=== PATIENT | female | born 1965 | race Two or more races ===

== ENCOUNTER 2018-10-31 14:54 | Inpatient (IN) | payer BC ==
[~2018-10-31] VITALS: Ht 165.1 cm; Wt 105.8 kg
[2018-10-31] MEDS ORDERED: NITROGLYCERIN SUBLINGUAL 0.4 MG BOTTLE OF 25. SL PRN ×2 (15:15→16:45)
--- NOTE | 2018-10-31 15:23 | PHYS DOC ---
Past Medical History Past Medical History: No Pertinent History Past Surgical History: Hysterectomy, Tubal ligation Alcohol Use: None Drug Use: None Adult General Chief Complaint Chief Complaint: CHEST PAIN HPI HPI Patient is a 52 year old F who presents with chest pain that she states has been intermittent since early October. She denies known history of CAD but does have risk factors including diabetes, obesity, family history and while she denies hypertension she is found to be hypertensive on arrival to ER today. Pt is primarily Scottish speaking and her daughter in room is translating for her. Pt saw her PCP early this month and was sent over for a nuclear stress test which was performed here on 10/16/18. In review of the test results they read as: ECG non-diagnostic, clinical findings: neg for ischemia, nuclear findings: positive for ischemia, LVF: intermediate risk study based on presence of inducib le ischemia involving the inferolateral wall and a fixed defect of anteroapical region likely attenuation artifact, post stress LVEF 69%. Pt states the pain has become more persistent today and requested to come to ER. She did take a full strength, 325mg ASA prior to arrival and states pain is sub sternal as well as in her upper back and neck region and describes it as a dull ache. She was nauseated without vomiting earlier today. She denies SOB or diophoresis. Review of Systems Review of Systems Constitutional: Denies fever or chills Respiratory: Denies cough or shortness of breath Cardiovascular: Reports chest pain. GI: Denies abdominal pain, vomiting, bloody stools or diarrhea. Reports nausea. Musculoskeletal: Reports upper back and neck pain. Integument: Denies rash or skin lesions Neurologic: Denies headache, focal weakness or sensory changes All other systems were reviewed and found to be within normal limits, except as documented in this note. Current Medications Current Medications Current Medications Medications (Trade) Dose Ordered Sig/Celina Start Time Stop Time Status Last Admin Dose Admin Nitroglycerin (Nitrostat) 0.4 mg PRN Q5MIN PRN 10/31/18 15:15 Allergies Allergies Allergies Coded Allergies Type Severity Reaction Last Updated Verified No Known Drug Allergies 10/31/18 No Physical Exam Physical Exam Constitutional: Well developed, well nourished, no acute distress, non-toxic appearance. HENT: Normocephalic, atraumatic, bilateral external ears normal, oropharynx moist. Neck: Normal range of motion, supple, no stridor. Ache is upper back and neck but without pain on palpation. Cardiovascular:Heart rate regular rhythm, no murmur Lungs & Thorax: Bilateral breath sounds clear to auscultation Abdomen: Bowel sounds normal, soft, no tenderness, no masses, no pulsatile masses. Skin: Warm, dry, no erythema, no rash. Back: No CVA tenderness. Aching in upper back. Extremities: No tenderness, no cyanosis, no clubbing, ROM intact, no edema. Neurologic: Alert and oriented X 3, normal motor function, normal sensory function, no focal deficits noted. Psychologic: Affect normal, judgement normal, mood normal. Current Patient Data Vital Signs Vital Signs Date Time Temp Pulse Resp B/P (MAP) Pulse Ox O2 Delivery O2 Flow Rate FiO2 10/31/18 15:00 98.7 77 20 176/94 (121) 97 Room Air 98.7 Lab Values Laboratory Tests Test 10/31/18 15:10 White Blood Count 7.1 x10^3/uL (4.0-11.0) Red Blood Count 4.50 x10^6/uL (3.50-5.40) Hemoglobin 13.2 g/dL (12.0-15.5) Hematocrit 38.9 % (36.0-47.0) Mean Corpuscular Volume 87 fL (79-100) Mean Corpuscular Hemoglobin 29 pg (25-35) Mean Corpuscular Hemoglobin Concent 34 g/dL (31-37) Red Cell Distribution Width 14.1 % (11.5-14.5) Platelet Count 329 x10^3/uL (140-400) Neutrophils (%) (Auto) 66 % (31-73) Lymphocytes (%) (Auto) 26 % (24-48) Monocytes (%) (Auto) 6 % (0-9) Eosinophils (%) (Auto) 2 % (0-3) Basophils (%) (Auto) 1 % (0-3) Neutrophils # (Auto) 4.7 x10^3uL (1.8-7.7) Lymphocytes # (Auto) 1.8 x10^3/uL (1.0-4.8) Monocytes # (Auto) 0.4 x10^3/uL (0.0-1.1) Eosinophils # (Auto) 0.1 x10^3/uL (0.0-0.7) Basophils # (Auto) 0.0 x10^3/uL (0.0-0.2) Prothrombin Time 12.3 SEC (11.7-14.0) Prothrombin Time INR 0.9 (0.8-1.1) PTT 27 SEC (24-38) Sodium Level 140 mmol/L (136-145) Potassium Level 4.5 mmol/L (3.5-5.1) Chloride Level 103 mmol/L (98-107) Carbon Dioxide Level 25 mmol/L (21-32) Anion Gap 12 (6-14) Blood Urea Nitrogen 15 mg/dL (7-20) Creatinine 0.6 mg/dL (0.6-1.0) Estimated GFR (Cockcroft-Gault) 105.0 BUN/Creatinine Ratio 25 (6-20) H Glucose Level 107 mg/dL (70-99) H Calcium Level 9.9 mg/dL (8.5-10.1) Total Bilirubin 0.3 mg/dL (0.2-1.0) Aspartate Amino Transferase (AST) 18 U/L (15-37) Alanine Aminotransferase (ALT) 34 U/L (14-59) Alkaline Phosphatase 76 U/L (46-116) Creatine Kinase 175 U/L (26-192) Creatine Kinase MB (Mass) 1.2 ng/mL (0.0-3.6) Creatine Kinase MB Relative Index 0.7 % (0-4) Troponin I Quantitative < 0.017 ng/mL (0.000-0.055) NB-Ysf-R-Type Natriuretic Peptide 59 pg/mL (0-124) Total Protein 7.9 g/dL (6.4-8.2) Albumin 3.9 g/dL (3.4-5.0) Albumin/Globulin Ratio 1.0 (1.0-1.7) Laboratory Tests 10/31/18 15:10 Laboratory Tests 10/31/18 15:10 EKG EKG EKG [address] Harry BARROSO, no STEMI Course & Med Decision Making Course & Med Decision Making Pertinent Labs and Imaging studies reviewed. (See chart for details) Chest pain x 1 month, worsening in intensity associated with nausea today and pain in upper back. Pt with several risk factors and somewhat abnormal Nuclear Stress Test this month as well. Will admit for further trending of enzymes and cardiology consult. Discussed case with PCP, Dr. Strickland, who accepted admission. Pt's pain was reduced by Nitro and she reports it as minimal at time of admission. Dragon Disclaimer Dragon Disclaimer This electronic medical record was generated, in whole or in part, using a voice recognition dictation system. Departure Departure Impression: Primary Impression: Chest pain Disposition: ADMITTED INPATIENT Admitting Physician: Krish Strickland Condition: IMPROVED Referrals: UNKNOWN PCP NAME (PCP) TREE LASSITRE October 31, 2018 15:23
[2018-10-31 15:24] LABS: BASO % 1 % (0-3); EOS # 0.1 x10^3/uL (0.0-0.7); EOS % 2 % (0-3); HEMATOCRIT 38.9 % (36.0-47.0); HEMOGLOBIN 13.2 g/dL (12.0-15.5); LYMPH # 1.8 x10^3/uL (1.0-4.8); LYMPH % 26 % (24-48); MEAN CORPUSCULAR HEMOGLOBIN 29 pg (25-35); MEAN CORPUSCULAR HGB CONC 34 g/dL (31-37); MEAN CORPUSCULAR VOLUME 87 fL (79-100); MONO # 0.4 x10^3/uL (0.0-1.1); MONO % 6 % (0-9); NEUT # 4.7 x10^3uL (1.8-7.7); NEUT % 66 % (31-73); PLATELET COUNT 329 x10^3/uL (140-400); RED CELL DISTRIBUTION WIDTH 14.1 % (11.5-14.5); WHITE BLOOD COUNT 7.1 x10^3/uL (4.0-11.0)
[2018-10-31 15:34] LABS: CALCIUM 9.9 mg/dL (8.5-10.1); CREATININE 0.6 mg/dL (0.6-1.0); POTASSIUM 4.5 mmol/L (3.5-5.1)
[2018-10-31 15:35] LABS: PROTHROMBIN TIME PATIENT 12.3 SEC (11.7-14.0)
[2018-10-31 15:40] LABS: ALBUMIN 3.9 g/dL (3.4-5.0); TOTAL BILIRUBIN 0.3 mg/dL (0.2-1.0); TOTAL PROTEIN 7.9 g/dL (6.4-8.2)
--- NOTE | 2018-10-31 15:43 | RAD ---
EXAM: CHEST 1 VIEW History: Chest pain COMPARISON: None available. TECHNIQUE: Single portable radiograph of the chest FINDINGS: The cardiac silhouette is unremarkable. The lungs are clear bilaterally. The costophrenic sulci are clear and well demarcated. IMPRESSION: No radiographic evidence of an acute cardiopulmonary process. Electronically signed by: Oumar Fox MD (10/31/2018 3:41 PM) [id number]
--- NOTE | 2018-10-31 16:41 | EKG ---
[facility] [address] [place] [address] Test Date: 2018-10-31 Test Time: 15:02:59 Pat Name: ARABELLA PEDROZA Department: Room: Gender: F Turn Down Attendant: : 1965 Requested By: TREE LASSITER Order Number: [id number] Reading MD: Measurements Intervals [place] Rate: 72 P: 35 MI: 142 QRS: 17 QRSD: 82 T: 31 QT: 382 QTc: 424 Interpretive Statements SINUS RHYTHM NORMAL ECG No previous ECG available for comparison
[2018-10-31] MEDS ORDERED: ONDANSETRON PF 4 MG/2 ML VIAL. IV PRN (16:45)
[2018-10-31] MEDS ORDERED: MORPHINE SULFATE 4 MG/ML VIAL. IV PRN (16:45)
[2018-10-31 19:41] VITALS: BP 142/80
[2018-10-31] MEDS ORDERED: GLIM2TAB2 PO (20:04)
[2018-10-31] MEDS ORDERED: SITA100T PO (20:04)
[2018-10-31] MEDS ORDERED: METF10007 PO (20:04)
[2018-10-31] MEDS: metFORMIN 500 MG TABLET PO SCH (21:14)
[2018-10-31] MEDS: GLIMEPIRIDE 2 MG TABLET. PO SCH (21:15)
[2018-10-31 23:25] VITALS: BP 117/70
[2018-11-01] VITALS (12 sets, daily range): BP systolic 95–134; BP diastolic 61–87
--- NOTE | 2018-11-01 | NUR ---
Patient arrived to floor at 1940 on 10/31, accompanied by ER nurse and . VS stable, assessment complete. no complaints of pain at this time. Pt resting comfortably on RA. Valuables checked. Patient orientated to unit, Call light with in reach, Bed in low locked position. Will continue to monitor patient.
[2018-11-01] MEDS: metFORMIN 500 MG TABLET PO SCH (08:00)
[2018-11-01] MEDS ORDERED: LINAGLIPTIN 5 MG TABLET PO SCH (09:00)
[2018-11-01 09:01] LABS: CHOLESTEROL/HDL RATIO 4.1
[2018-11-01] MEDS ORDERED: HEPARIN for ARTERIAL LINE 1,500 ML ONE (09:32)
[2018-11-01] MEDS ORDERED: LIDOCAINE 1% Multi-Dose 20 ML VIAL. ONE (09:32)
[2018-11-01] MEDS ORDERED: IOHEXOL 300 MG/ML 100ML VIAL. ONE (09:32)
--- NOTE | 2018-11-01 09:35 | PDOC2 ---
CARDIAC CONSULT DATE OF CONSULT Date of Consult DATE: 11/01/18 TIME: 09:23 REASON FOR CONSULT Reason for Consult: Chest pain REFERRING PHYSICIAN Referring Physician: Julia SOURCE Source: Chart review, Patient HISTORY OF PRESENT ILLNESS HISTORY OF PRESENT ILLNESS This is a pleasant 52 yo female admitted for complains of chest pain. Reports that this has been happening everyday but tolerable. It actually goes away with activity citing that working around makes her forget about the pain. Associated with radiating discomfort to neck and shoulders and describing it as midchest pressure but at the same time there is a reproducible focal region to left chest with palpation but not reproducible with inspiration nor positional changes nor ROM. No recent falls or injury. No other symptoms such nausea, vomiting, heartburn, diaphoresis, palpitations or SOA. No ARITA. No prior hx of CAD but did have a recent abnormal MPI. She has been taking baby ASA everyday. Feels fatigue during the day, snores at night, no PND. PAST MEDICAL HISTORY Cardiovascular: Hyperlipidemia Pulmonary: No pertinent hx CENTRAL NERVOUS SYSTEM: Other (No pertinent history) GI: GERD Heme/Onc: No pertinent hx Hepatobiliary: Cholelithiasis, Other (liver mass noted 20 yrs ago told it was benign) Psych: No pertinent hx Musculoskeletal: Osteoarthritis Rheumatologic: No pertinent hx Infectious disease: No pertinent hx ENT: No pertinent hx Renal/: No pertinent hx Endocrine: Diabetes (2) Dermatology: No pertinent hx PAST SURGICAL HISTORY Past Surgical History: Cholecystectomy, FAMILY HISTORY Family History: Heart Disease (father) SOCIAL HISTORY Smoke: No ALCOHOL: none Drugs: None Lives: with Family CURRENT MEDICATIONS CURRENT MEDICATIONS Current Medications Medications (Trade) Dose Ordered Sig/Celina Route PRN Reason Start Time Stop Time Status Last Admin Dose Admin Glimepiride (Amaryl) 2 mg BIDWMEALS PO 10/31/18 21:15 10/31/18 21:15 Metformin HCl (Glucophage) 1,000 mg BIDWMEALS PO 10/31/18 21:15 10/31/18 21:14 ALLERGIES ALLERGIES: Coded Allergies: No Known Drug Allergies (Unverified , 10/31/18) ROS Review of System 14 point ROS evaluated with pertinent positives noted per HPI PHYSICAL EXAM General: Alert, Oriented X3, Cooperative, No acute distress HEENT: Atraumatic, Mucous membr. moist/pink Lungs: Clear to auscultation, Normal air movement Heart: Regular rate (SR), Normal S1, Normal S2, No murmurs Abdomen: Soft, No tenderness Extremities: No cyanosis, No edema Skin: No breakdown, No significant lesion Neuro: Normal speech, Sensation intact Psych/Mental Status: Mental status NL, Mood NL MUSCULOSKELETAL: Osteoarthritic changes both hands VITALS VITALS Vital Signs Date Time Temp Pulse Resp B/P (MAP) Pulse Ox O2 Delivery O2 Flow Rate FiO2 11/01/18 07:00 98.1 76 18 134/71 (92) 96 Room Air 98.1 LABS Lab: Laboratory Tests Test 10/31/18 15:10 10/31/18 19:30 10/31/18 22:30 11/01/18 08:10 White Blood Count 7.1 x10^3/uL (4.0-11.0) Red Blood Count 4.50 x10^6/uL (3.50-5.40) Hemoglobin 13.2 g/dL (12.0-15.5) Hematocrit 38.9 % (36.0-47.0) Mean Corpuscular Volume 87 fL (79-100) Mean Corpuscular Hemoglobin 29 pg (25-35) Mean Corpuscular Hemoglobin Concent 34 g/dL (31-37) Red Cell Distribution Width 14.1 % (11.5-14.5) Platelet Count 329 x10^3/uL (140-400) Neutrophils (%) (Auto) 66 % (31-73) Lymphocytes (%) (Auto) 26 % (24-48) Monocytes (%) (Auto) 6 % (0-9) Eosinophils (%) (Auto) 2 % (0-3) Basophils (%) (Auto) 1 % (0-3) Neutrophils # (Auto) 4.7 x10^3uL (1.8-7.7) Lymphocytes # (Auto) 1.8 x10^3/uL (1.0-4.8) Monocytes # (Auto) 0.4 x10^3/uL (0.0-1.1) Eosinophils # (Auto) 0.1 x10^3/uL (0.0-0.7) Basophils # (Auto) 0.0 x10^3/uL (0.0-0.2) Prothrombin Time 12.3 SEC (11.7-14.0) Prothromb Time International Ratio 0.9 (0.8-1.1) Activated Partial Thromboplast Time 27 SEC (24-38) Sodium Level 140 mmol/L (136-145) Potassium Level 4.5 mmol/L (3.5-5.1) Chloride Level 103 mmol/L (98-107) Carbon Dioxide Level 25 mmol/L (21-32) Anion Gap 12 (6-14) Blood Urea Nitrogen 15 mg/dL (7-20) Creatinine 0.6 mg/dL (0.6-1.0) Estimated GFR (Cockcroft-Gault) 105.0 BUN/Creatinine Ratio 25 (6-20) Glucose Level 107 mg/dL (70-99) Calcium Level 9.9 mg/dL (8.5-10.1) Total Bilirubin 0.3 mg/dL (0.2-1.0) Aspartate Amino Transf (AST/SGOT) 18 U/L (15-37) Alanine Aminotransferase (ALT/SGPT) 34 U/L (14-59) Alkaline Phosphatase 76 U/L (46-116) Creatine Kinase 175 U/L (26-192) Creatine Kinase MB (Mass) 1.2 ng/mL (0.0-3.6) Creatine Kinase MB Relative Index 0.7 % (0-4) Troponin I Quantitative < 0.017 ng/mL (0.000-0.055) < 0.017 ng/mL (0.000-0.055) < 0.017 ng/mL (0.000-0.055) ZI-Wqm-Y-Type Natriuretic Peptide 59 pg/mL (0-124) Total Protein 7.9 g/dL (6.4-8.2) Albumin 3.9 g/dL (3.4-5.0) Albumin/Globulin Ratio 1.0 (1.0-1.7) Glucose (Fingerstick) 144 mg/dL (70-99) Test 11/01/18 08:23 Triglycerides Level 102 mg/dL (0-150) Cholesterol Level 177 mg/dL (0-200) LDL Cholesterol, Calculated 114 mg/dL (0-100) VLDL Cholesterol, Calculated 20 mg/dL (0-40) Non-HDL Cholesterol Calculated 134 mg/dL (0-129) HDL Cholesterol 43 mg/dL (40-60) Cholesterol/HDL Ratio 4.1 ASSESSMENT/PLAN ASSESSMENT/PLAN 1. Chest pain with recent abnormal MPI 2. DM2/HLP 3. Morbid obesity 4. Suspect [facility]OLY Recommendations 1. Hold metformin. 2. ASA. [facility] today, risks and benefits discussed and agreeable to proceed. 3. TTE, TSH, lipids, A1C. 4. Lifestyle modification, diet and wt loss. 5. Will need outpt YOLY w/u HOWARD PEMBERTON PUBLIC INTERVIEWER November 01, 2018 09:35
[2018-11-01] MEDS ORDERED: fentaNYL PF VIAL 100 MCG/2 ML VIAL ONE (10:08)
[2018-11-01] MEDS ORDERED: MIDAZOLAM HCL/PF 2 MG/2 ML VIAL. ONE (10:09)
--- NOTE | 2018-11-01 10:25 | PDOC ---
MODERATE SEDATION ASSESSMENT RISKS/ALTERNATIVES Risks/Alternatives Risks and alternatives of this type of sedation and procedure discussed with: RISK/ALTERNATIVES: Patient H & P ON CHART H & P H & P on chart and reviewed for co-morbid conditions and appropriate labs. H&P ON CHART: Yes STATUS PREG STATUS ASSESSED: Yes MEDS/ALLERGIES REVIEWED Meds/Allergies Reviewed Medications and Allergies including time and route of recently administered narcotics and sedatives. MEDS/ALLERGIES REVIEWED: Yes ASA RATING ASA RATING: II AIRWAY ASSESSMENT Airway Assessment Airway patency, oral function limitations, presence of caps, crowns, dentures, partials, and ability to extend neck assessed. AIRWAY ASSESSMENT: Yes MALLAMPATI SCORE MALLAMPATI SCORE: II PRE-SEDATION ASSESSMENT PRE-SEDATION ASSESSMENT: Yes MIHIR DENNIS MD November 01, 2018 10:25
[2018-11-01] MEDS ORDERED: HEPARIN for IV BOLUS 10,000 UNIT/10 ML VIAL. ONE (10:34)
[2018-11-01] MEDS ORDERED: VERAPAMIL 5 MG/2 ML VIAL. ONE (10:34)
[2018-11-01] MEDS ORDERED: NITROGLYCERIN 200 MCG/2 ML SYRINGE FOR CATH/VASC LAB. ONE (10:34)
[2018-11-01] MEDS ORDERED: IOHEXOL 300 MG/ML 100ML VIAL. IART ONE (10:45)
[2018-11-01] MEDS ORDERED: LIDOCAINE 1% Multi-Dose 20 ML VIAL. INJ ONE (10:45)
[2018-11-01] MEDS ORDERED: VERAPAMIL 5 MG/2 ML VIAL. IART ONE (10:45)
[2018-11-01] MEDS ORDERED: MIDAZOLAM HCL/PF 2 MG/2 ML VIAL. IV ONE (10:45)
[2018-11-01] MEDS ORDERED: NITROGLYCERIN 200 MCG/2 ML SYRINGE FOR CATH/VASC LAB. IART ONE (10:45)
[2018-11-01] MEDS ORDERED: fentaNYL PF VIAL 100 MCG/2 ML VIAL IV ONE (10:45)
[2018-11-01] MEDS ORDERED: HEPARIN for IV BOLUS 10,000 UNIT/10 ML VIAL. IART ONE (10:45)
[2018-11-01] MEDS ORDERED: CONTRAST GIVEN. MC PRN (11:00)
[2018-11-01] MEDS ORDERED: 0.9 % SODIUM CHLORIDE 10 ML DISP.SYRIN. IV PRN (11:30)
[2018-11-01] MEDS ORDERED: IV NORMAL SALINE 1000ML BAG 1,000 ML IV SCH (11:30)
[2018-11-01] MEDS ORDERED: NITROGLYCERIN SUBLINGUAL 0.4 MG BOTTLE OF 25. SL PRN (11:30)
--- NOTE | 2018-11-01 12:40 | NUR ---
SS following for discharge planning. SS reviewed pt's chart. Pt is from home with spouse and is currently on room air. No discharge needs noted at this time. SS will continue to follow for discharge planning.
--- NOTE | 2018-11-01 13:32 | CARD ---
MR#: [id number] Date of Study: 11/01/2018 Ordering Physician: HOWARD PEMBERTON, Referring Physician: RENUKA SHAFER Tech: Taya Weaver GABINO APPROVED REPORT EXAM: Two-dimensional and M-mode echocardiogram with Doppler and color Doppler. Other Information Quality : Good INDICATION Chest Pain 2D DIMENSIONS Left Atrium(2D)3.3 (1.6-4.0cm)IVSd1.3 (0.7-1.1cm) Aortic Root(2D)2.6 (2.0-3.7cm)LVDd4.0 (3.9-5.9cm) LVOT Diameter2.1 (1.8-2.4cm)PWd0.8 (0.7-1.1cm) LVDs2.1 (2.5-4.0cm)FS (%) 30.0 % SV55.6 mlLVEF(%)60.0 (>50%) Aortic Valve AoV Peak Renaldo.185.1cm/sAoV VTI33.4cm AO Peak GR.13.7mmHgLVOT VTI 25.60cm AO Mean GR.6mmHgAVA (VTI)2.70cm2 Mitral Valve MV E Xdafsgyw25.3cm/sMV DECEL TARS648gj MV A Aceqoqti52.5cm/sE/A Ratio0.8 TDI Lateral E' P. V8.30cm/sMedial E' P. V6.18cm/s E/Lateral E'9.9E/Medial E'13.3 Tricuspid Valve TR P. Bkynfawh668dy/sRAP XEHYWNVF1zaPg TR Peak Gr.53bwPxYYHA42ffWz Pulmonary Vein S1 Owtvpard32.9cm/sS2 Lwudqcqy55.16cm/s D2 Ixiudftb30.2cm/s LEFT VENTRICLE The left ventricle is normal size. There is mild asymmetric septal hypertrophy. The left ventricular systolic function is normal. The Ejection Fraction is 55-60%. There is normal LV segmental wall motio n. Transmitral Doppler flow pattern is Grade I-abnormal relaxation pattern. RIGHT VENTRICLE The right ventricle is normal size. The right ventricular systolic function is normal. ATRIA The left atrium size is normal. The right atrium size is normal. The interatrial septum is intact wit h no evidence for an atrial septal defect or patent foramen ovale as noted on 2-D or Doppler imaging. AORTIC VALVE The aortic valve is normal in structure and function. Doppler and Color Flow revealed trace aortic re gurgitation. There is no significant aortic valvular stenosis. MITRAL VALVE The mitral valve is normal in structure and function. There is no evidence of mitral valve prolapse. There is no mitral valve stenosis. Doppler and Color-flow revealed trace mitral regurgitation. TRICUSPID VALVE The tricuspid valve is normal in structure and function. Doppler and Color Flow revealed trace tricus pid regurgitation. There is mild pulmonary hypertension. The PA pressure was estimated at 39 mmHg. Th ere is no tricuspid valve stenosis. PULMONIC VALVE The pulmonic valve is not well visualized. Doppler and Color Flow revealed no pulmonic valvular regur gitation. There is no pulmonic valvular stenosis. GREAT VESSELS The aortic root is normal in size. The ascending aorta is not well seen. The IVC is normal in size an d collapses >50% with inspiration. PERICARDIAL EFFUSION There is no evidence of significant pericardial effusion. Critical Notification Critical Value: No <Conclusion> The left ventricular systolic function is normal. The Ejection Fraction is 55-60%. There is normal LV segmental wall motion. Transmitral Doppler flow pattern is Grade I-abnormal relaxation pattern. Trace mitral regurgitation. Trace tricuspid regurgitation. The PA pressure was estimated at 39 mmHg. There is no evidence of significant pericardial effusion. Signed by : Aristeo Wheat, Electronically Approved : 11/01/2018 13:31:52
[2018-11-01] MEDS: GLIMEPIRIDE 2 MG TABLET. PO SCH (13:39)
--- NOTE | 2018-11-01 14:13 | CARD ---
MR#: [id number] Date of Study: 11/01/2018 Ordering Physician: HOWARD PEMBERTON, Referring Physician: RENUKA SHAFER Tech: Angelika Weaver RT (R) APPROVED REPORT Procedures Left heart catheterization Selective coronary angiogram Left ventriculogram The patient is a 52-year-old female who was admitted to the hospital with chest pain. She had an outp atient stress test earlier this month that was abnormal and suggestive of reversible ischemia. In the setting of her recurrent chest pain and abnormal nuclear stress test a cardiac catheterization was r ecommended for definitive diagnosis of possible CAD. Risks and benefits were discussed with the patie nt. She agreed to proceed. After informed consent was obtained the patient was brought to the heart catheterization lab. The are a of the right radial artery was per usual manner with Betadine, sterile draping and local anesthetic after an acceptable Maurice's test. Access was obtained to the right femoral artery, a wire placed and a 6 Guamanian sheath placed over the wire. The standard mixture of heparin and antispasm medications wa s administered through the sheath. Using a J-wire, a 6 Guamanian JL 3.5 diagnostic catheter was advanced to the ascending aorta. Despite repeated manipulation the catheter could not engage the left system. An extra-support wire was then attempted to be used but still acceptable engagement could not be obt ained. The catheter was removed and the area of the right femoral artery was prepared usual manner wi th Betadine, sterile draping and local anesthetic. An 18-gauge needle was used to enter the right fem oral artery, a wire placed and a 6 Guamanian sheath placed over the wire. A 6 Guamanian JL4 diagnostic cath eter was advanced to the ascending aorta. It was used to engage the left coronary system and sequenti al injections in various views were obtained. A 6 Guamanian Isidoro diagnostic catheter was used to en estelle the right coronary artery system and sequential injections in various views were obtained. A pig tail catheter was advanced to the ascending aorta and the left ventricle. Pressures were obtained. A 30 GALLARDO left ventriculargram was performed. Pullback pressures were measured. The catheter was remove d from the patient. All catheter exchanges were over a J-wire. Injection of the sheath showed normal placement. The sheath was removed and sealed with an Angio-Seal product. The sheath in the right radi al artery then was removed and sealed in the standard manner with a TR band. The patient was moved to the holding area in stable condition. Findings. Hemodynamics. LV pressure of 108 / 2, 6. Aortic root of 106/52. Coronaries. Left main. The left main was a normal-size vessel with no lesions. Left anterior descending. The LAD was a moderate size vessel that tapered into a relatively small dis monika vessel. There were no lesions. Left circumflex. The left circumflex was a moderate sized nondominant vessel. It had no lesions. Right coronary artery. The right coronary was a large dominant vessel with no lesions. Left ventriculogram. A left ventricle showed normal left ventricular systolic function with an ejection fraction of greate r than 55%. Male <Conclusion> No angiographic evidence of coronary artery disease. Relatively small distal LAD vessel. Normal left ventricular systolic function. Signed by : Mingo Pat MD Electronically Approved : 11/01/2018 14:13:21
--- NOTE | 2018-11-01 16:50 | HP ---
ADMIT DATE: 10/31/2018 CHIEF COMPLAINT AND HISTORY OF PRESENT ILLNESS: This 52-year-old female followed in my office. The patient has been having chest pain intermittently since early October. She denies any known history of coronary artery disease, has risk factors, however, associated with diabetes and a family history. She was sent over for a nuclear stress test performed on 10/16/2018, which were read as an intermediate risk. The pain had become more persistent on the day of admission. She came to the Emergency Room after taking a full strength aspirin. The pain was primarily in her upper back, but also substernal and neck region and dull ache. She had a little bit of nausea. Denies any shortness of breath, lightheadedness, diaphoresis with it. It may be a little worse with exertion, but not with the motion. She was admitted for the same. Rule out cardiac etiology. PAST MEDICAL HISTORY: Remarkable for diabetes and hyperlipidemia. PAST SURGICAL HISTORY: Remarkable for hysterectomy and tubal ligation. SOCIAL HISTORY: Noncontributory. FAMILY HISTORY: Noncontributory. REVIEW OF SYSTEMS: As mentioned above. PHYSICAL EXAMINATION: GENERAL: She is well-developed, well-nourished female, in no acute distress. is at bedside. VITAL SIGNS: Stable. She is afebrile. HEAD, EYES, EARS, NOSE AND THROAT: Unremarkable. NECK: Supple, without adenopathy or thyromegaly. CHEST: Clear to auscultation and percussion. HEART: Regular rate and rhythm without S3, S4, or murmur. ABDOMEN: Soft, nontender, without hepatosplenomegaly or mass. EXTREMITIES: No cyanosis, clubbing or edema. NEUROLOGIC: She is intact. LABORATORY DATA: Initial laboratory includes a CBC that was unremarkable and INR that was likewise unremarkable. PTT that was unremarkable. Blood sugar was 107 on admission. Troponin x 2 have been negative. CMP is essentially unremarkable. CPK has been normal. IMPRESSION: 1. Chest pain, rule out cardiac etiology. 2. Diabetes. 3. Hyperlipidemia. PLAN: The patient has been admitted. Cardiology has been consulted. The patient will be monitored, managed and treated appropriately. RENUKA SHAFER MD DR: GIA/jessica JOB#: [id number] / [id number]
--- NOTE | 2018-11-01 16:58 | NUR ---
Discharge: Teaching verbal and written. Reviewed medications, follow-up, Appl appointment TuesdayNovember 03 at 1000, cardiac cath, post cath precautions groin and radial, ECHO, Chest pain, ect. Arm board in place. Copy of cardiac cath precautions given to patient. Patient speaks Prydeinig and Polish. So interrpruted from Prydeinig to Polish so all the family could understand. Patient, and son verbalized understanding. All belongings with patient. Patient assisted off of unit via wheelchair accompanied by and SOLE ROUNDER
--- NOTE | 2018-11-01 18:55 | DS ---
DATE OF DISCHARGE: 11/01/2018 PRIMARY DIAGNOSIS: Noncardiac chest pain. ADDITIONAL DIAGNOSES: Diabetes and hyperlipidemia. CHIEF COMPLAINT AND HISTORY OF PRESENT ILLNESS: This is a 52-year-old female presented to the Emergency Room with chest pain. She had an intermediate probability stress test done as an outpatient and the chest pain got more persistent, was mainly upper back into the substernal neck area with associated some nausea. It might have also been a little worse with activity. SUMMARY OF STAY: The patient was admitted. Vital signs were stable throughout the stay. Cardiac enzymes were negative. Laboratories were essentially unremarkable. She did undergo cardiac catheterization. On the day of discharge, it was within normal limits. It was feeling that her chest pain was noncardiac in nature by Cardiology and the patient was felt she could be dismissed with close outpatient followup in the office and this was accomplished on the day of discharge. DISPOSITION: The patient is discharged to home. DIET: ADA diet. ACTIVITY: As tolerated, office later this week. DISCHARGE MEDICATIONS: Listed on the computer and have been addressed. RENUKA SHAFER MD DR: GIA/jessica JOB#: [id number] / [id number]
[2018-11-01] MEDS ORDERED: ATORVASTATIN CALCIUM 20 MG TABLET PO SCH (21:00)
[2018-11-03] MEDS ORDERED: metFORMIN 500 MG TABLET PO SCH (17:00)
== END 2018-11-01 16:50 | disposition home or self-care (01) | DRG 287 ==
LOC: ER 14:54 → 2 NORTH 16:15
PROVIDERS: ADMIT Family Medicine; ATTEND Family Medicine
PROC: 4A023N7 Measurement of Cardiac Sampling and Pressure, Left Heart, Percutaneous Approach (ICD-10-PCS; principal; 2018-11-01)
PROC: B2151ZZ Fluoroscopy of Left Heart using Low Osmolar Contrast (ICD-10-PCS; 2018-11-01)
PROC: B2111ZZ Fluoroscopy of Multiple Coronary Arteries using Low Osmolar Contrast (ICD-10-PCS; 2018-11-01)
DX: R07.89 Other chest pain (principal); E11.9 Type 2 diabetes mellitus without complications; E66.01 Morbid (severe) obesity due to excess calories; E78.5 Hyperlipidemia, unspecified; M19.90 Unspecified osteoarthritis, unspecified site; K21.9 Gastro-esophageal reflux disease without esophagitis; Z79.82 Long term (current) use of aspirin; Z82.49 Family history of ischemic heart disease and other diseases of the circulatory system; Z90.710 Acquired absence of both cervix and uterus; Z68.38 Body mass index [BMI] 38.0-38.9, adult; Z98.51 Tubal ligation status; Z90.49 Acquired absence of other specified parts of digestive tract
CPT/HCPCS: 93458; 99285; G0269; 36415; 71045; 80053; 80061; 82553; 82962; 83036; 83880; 84443; 84484; 85025; 85610; 85730; 93005; 93306; 99152; 99153; C1760; C1769; C1892; J1644; J2250; J3010; J3490; J7030; Q9967; C1771

== ENCOUNTER 2020-11-28 21:21 | Emergency (ER) | payer BC ==
[~2020-11-28] VITALS: Ht 165.1 cm; Wt 109.1 kg
[~2020-11-28 21:21] MED LIST: GLIM2TAB7 PO; METF10007 PO; SITA100T PO
[2020-11-28] MEDS ORDERED: HYDROcodone/APAP 5/325MG 1 TAB TABLET PO ONE (22:30)
--- NOTE | 2020-11-28 22:30 | PHYS DOC ---
Past Medical History Past Medical History: Diabetes-Type II Past Surgical History: Cholecystectomy, , Tubal ligation Smoking Status: Never Smoker Alcohol Use: None Drug Use: None General Adult EDM: Chief Complaint: KNEE INJURY HPI: HPI: Patient is a 55 year old female who presents with states that she was getting out of the car when she went to move her left leg she felt a pop behind the knee. She states she is been able to walk on it but it is painful. She does have control over the joint but it is painful again. She states she is laying in bed she has no pain but if she is up and moving the pain is at an 8 out of 10. She did not take any medication prior to coming. Review of Systems: Review of Systems: Constitutional: Denies fever or chills. [] Eyes: Denies change in visual acuity. [] HENT: Denies nasal congestion or sore throat. [] Respiratory: Denies cough or shortness of breath. [] Cardiovascular: Denies chest pain or edema. [] GI: Denies abdominal pain, nausea, vomiting, bloody stools or diarrhea. [] : Denies dysuria. [] Musculoskeletal: Denies back pain or + left knee joint pain. [] Integument: Denies rash. [] Neurologic: Denies headache, focal weakness or sensory changes. [] Endocrine: Denies polyuria or polydipsia. [] Lymphatic: Denies swollen glands. [] Psychiatric: Denies depression or anxiety. [] Heart Score: C/O Chest Pain: No Risk Factors: Risk Factors: DM, Current or recent (<one month) smoker, HTN, HLP, family history of CAD, obesity. Risk Scores: Score 0 - 3: 2.5% MACE over next 6 weeks - Discharge Home Score 4 - 6: 20.3% MACE over next 6 weeks - Admit for Clinical Observation Score 7 - 10: 72.7% MACE over next 6 weeks - Early Invasive Strategies Current Medications: Current Medications Medications (Trade) Dose Ordered Sig/Celina Start Time Stop Time Status Last Admin Dose Admin Acetaminophen/ Hydrocodone Bitart (Lortab 5/325) 1 tab 1X ONCE 11/28/20 22:30 11/28/20 22:31 11/28/20 22:17 1 TAB Allergies: Allergies: Allergies Coded Allergies Type Severity Reaction Last Updated Verified No Known Drug Allergies 10/31/18 No Physical Exam: PE: Constitutional: Well developed, well nourished, no acute distress, non-toxic appearance. [] HENT: Normocephalic, atraumatic, bilateral external ears normal, oropharynx moist, no oral exudates, nose normal. [] Eyes: PERRLA, EOMI, conjunctiva normal, no discharge. [] Neck: Normal range of motion, no tenderness, supple, no stridor. [] Cardiovascular:Heart rate regular rhythm, no murmur [] Lungs & Thorax: Bilateral breath sounds clear to auscultation [] Abdomen: Bowel sounds normal, soft, no tenderness, no masses, no pulsatile masses. [] Skin: Warm, dry, no erythema, no rash. [] Back: No tenderness, no CVA tenderness. [] Extremities: Back of left knee tenderness, no cyanosis, no clubbing, left knee ROM intact but limited due to pain, no edema. [] Neurologic: Alert and oriented X 3, normal motor function, normal sensory function, no focal deficits noted. [] Psychologic: Affect normal, judgement normal, mood normal. [] Current Patient Data: Vital Signs: Vital Signs Date Time Temp Pulse Resp B/P (MAP) Pulse Ox O2 Delivery O2 Flow Rate FiO2 11/28/20 22:17 98 Room Air 11/28/20 21:25 97.9 75 20 153/47 (82) 97.9 EKG: EKG: [] Radiology/Procedures: Radiology/Procedures: [] Impression: [facility] [address] [place] [address] IMAGING REPORT Signed PATIENT: ARABELLA DE LEÓNACCOUNT: [id number] : 1965 LOCATION: ER AGE: 55 SEX: F EXAM STATUS: PRE ER ORD. PHYSICIAN: GILBERTO MARIN APRN REASON: pain after injury PROCEDURE: KNEE LEFT 3V Exam: Left knee 3 views INDICATION: Pain after injury TECHNIQUE: Frontal, lateral and oblique views of the left knee Comparisons: None FINDINGS: Bone mineralization is normal. No acute or healed fractures. Soft tissues are unremarkable. Joint spaces are well-maintained. IMPRESSION: No acute osseous abnormality. Electronically signed by: Andrea Cotter MD (11/28/2020 10:31 PM) [facility] DICTATED and SIGNED BY: ANDREA COTTER MD DATE: 11/28/20 [id number] 0 Course & Med Decision Making: Course & Med Decision Making Pertinent Labs and Imaging studies reviewed. (See chart for details) See HPI. Alert and oriented x4. Ambulatory but limping on the left leg. No deformity or laxity to the joint. Her motion is limited due to pain. Denies any numbness or tingling. Skin pink warm and dry. There is no swelling, bruising. There is tenderness behind the knee palpation. Pulses present. Patient can wiggle her toes. Good strengths. Patient is placed in a knee immobilizer. She is given hydrocodone in the ED. She is leaving for [place] in the morning for 2 weeks. She is also given crutches. [] Dragon Disclaimer: Dragon Disclaimer: This electronic medical record was generated, in whole or in part, using a voice recognition dictation system. Departure Departure Impression: Primary Impression: Knee pain, right Qualified Codes: M25.561 - Pain in right knee Disposition: HOME / SELF CARE / HOMELESS Condition: STABLE Referrals: UNKNOWN PCP NAME (PCP) ASIYA WALLACE MD Patient Instructions: Crutch Use, Knee Immobilizer, Kamb-su-Hnby, Knee Sprain Additional Instructions: Follow-up with your primary care physician or the orthopedic I have referred you to soon as you come back from vacation. Use ice to help with pain. Take medication as prescribed and with food. Remember some of these medications will make you sleepy. Scripts Ibuprofen (IBUPROFEN) 600 Mg Tablet 600 MG PO PRN Q6HRS PRN for INFLAMMATION, #26 TAB Prov: GILBERTO MARIN JAZZ SINGER 11/28/20 Hydrocodone Bit/Acetaminophen (HYDROCODONE-APAP 5-325 ) 1 Tab Tablet 1 TAB PO PRN Q6HRS PRN for PAIN, #12 TAB 0 Refills Prov: GILBERTO MARIN JAZZ SINGER 11/28/20 GILBERTO MARIN JAZZ SINGER Nov 28, 2020 22:30
--- NOTE | 2020-11-28 22:34 | RAD ---
Exam: Left knee 3 views INDICATION: Pain after injury TECHNIQUE: Frontal, lateral and oblique views of the left knee Comparisons: None FINDINGS: Bone mineralization is normal. No acute or healed fractures. Soft tissues are unremarkable. Joint spa pieter are well-maintained. IMPRESSION: No acute osseous abnormality. Electronically signed by: Andrea Leonard MD (11/28/2020 10:31 PM) [facility]
[2020-11-28] MEDS ORDERED: IBUP-1007 PO (22:38)
[2020-11-28] MEDS ORDERED: HYDR-2761 PO (22:38)
[2020-11-28 22:50] VITALS: BP 169/75
== END 2020-11-28 22:58 | disposition home or self-care (01) ==
LOC: ER 21:21
DX: M25.562 Pain in left knee (principal); E11.9 Type 2 diabetes mellitus without complications; X50.9XXA Other and unspecified overexertion or strenuous movements or postures, initial encounter; Y92.89 Other specified places as the place of occurrence of the external cause; Y93.89 Activity, other specified; Y99.8 Other external cause status
CPT/HCPCS: 29505; 73562; 99283; 99284

== ENCOUNTER 2021-07-24 15:49 | Emergency (ER) | payer BC, OTHER ==
[~2021-07-24] VITALS: Ht 165.1 cm; Wt 125.0 kg
[~2021-07-24 15:49] MED LIST changes: +HYDR-2761 PO; +IBUP-1007 PO
[2021-07-24] MEDS ORDERED: ASPIRIN CHEWABLE 81 MG TABLET. PO ONE (16:00)
--- NOTE | 2021-07-24 16:04 | PHYS DOC ---
Past Medical History Past Medical History: Diabetes-Type II Past Surgical History: Cholecystectomy, , Tubal ligation Smoking Status: Never Smoker Alcohol Use: None Drug Use: None General Adult EDM: Chief Complaint: CHEST PAIN HPI: HPI: Patient is a 55-year-old female who presents to the emergency department today for midsternal chest pain that started yesterday. She describes it as a constant pain and she is also reporting bilateral shoulder pain. She rates her pain 6 out of 10. She cannot describe the pain. No alleviating or aggravating factors. Patient reports that she has had a history of chest pain and was evaluated last year for this. She reports that she has had a cardiac catheterization. Patient is Malay-speaking and family members are interpreting at this time. Patient's vital signs are stable. Patient denies nausea, vomiting, shortness of breath, cough, fever. Medical history of diabetes type 2. She does not take insulin. Review of Systems: Review of Systems: Constitutional: negative unless reported in HPI Eyes: negative unless reported in HPI HENT: negative unless reported in HPI Respiratory: negative unless reported in HPI Cardiovascular: negative unless reported in HPI GI: negative unless reported in HPI : negative unless reported in HPI Musculoskeletal: negative unless reported in HPI Integument: negative unless reported in HPI Neurologic: negative unless reported in HPI Endocrine: negative unless reported in HPI Lymphatic: negative unless reported in HPI Psychiatric: negative unless reported in HPI Heart Score: C/O Chest Pain: Yes HEART Score for Chest Pain: HEART Score for Chest Pain Response (Comments) Value History Slighlty/Non-Suspicious 0 ECG Nonspecific Repolarizatio 1 Age >45 - < 65 1 Risk Factors 1 or 2 Risk Factors 1 Troponin < Normal Limit 0 Total 3 Risk Factors: Risk Factors: DM, Current or recent (<one month) smoker, HTN, HLP, family history of CAD, obesity. Risk Scores: Score 0 - 3: 2.5% MACE over next 6 weeks - Discharge Home Score 4 - 6: 20.3% MACE over next 6 weeks - Admit for Clinical Observation Score 7 - 10: 72.7% MACE over next 6 weeks - Early Invasive Strategies Current Medications: Current Medications Medications (Trade) Dose Ordered Sig/Celina Start Time Stop Time Status Last Admin Dose Admin Aspirin (Aspirin Chewable) 324 mg 1X ONCE 07/24/21 16:00 07/24/21 16:01 Allergies: Allergies: Allergies Coded Allergies Type Severity Reaction Last Updated Verified No Known Drug Allergies 10/31/18 No Physical Exam: PE: Constitutional: Well developed, well nourished, no acute distress, non-toxic appearance. [] HENT: Normocephalic, atraumatic, bilateral external ears normal, oropharynx moist, no oral exudates, nose normal. [] Eyes: PERRL, EOMI, conjunctiva normal, no discharge. [] Neck: Normal range of motion, no stridor Cardiovascular:Heart rate regular rhythm, no murmur, chest pain not reproducible with palpation [] Lungs & Thorax: Bilateral breath sounds clear to auscultation [] Abdomen: Bowel sounds normal, soft, no tenderness, obese, no masses, no pulsatile masses. [] Skin: Warm, dry, no erythema, no rash. [] Back: Normal range of motion Extremities: No tenderness, no cyanosis, no clubbing, ROM intact, no edema. [] Neurologic: Alert and oriented X 3, normal motor function, normal sensory fun ction, no focal deficits noted. [] Psychologic: Affect normal, judgement normal, mood normal. [] Current Patient Data: Labs: Laboratory Tests Test 07/24/21 16:00 White Blood Count 6.0 x10^3/uL Red Blood Count 4.13 x10^6/uL Hemoglobin 12.0 g/dL Hematocrit 35.8 % Mean Corpuscular Volume 87 fL Mean Corpuscular Hemoglobin 29 pg Mean Corpuscular Hemoglobin Concent 34 g/dL Red Cell Distribution Width 14.9 % Platelet Count 291 x10^3/uL Neutrophils (%) (Auto) 61 % Lymphocytes (%) (Auto) 30 % Monocytes (%) (Auto) 8 % Eosinophils (%) (Auto) 1 % Basophils (%) (Auto) 1 % Neutrophils # (Auto) 3.7 x10^3/uL Lymphocytes # (Auto) 1.8 x10^3/uL Monocytes # (Auto) 0.5 x10^3/uL Eosinophils # (Auto) 0.1 x10^3/uL Basophils # (Auto) 0.0 x10^3/uL Sodium Level 143 mmol/L Potassium Level 4.2 mmol/L Chloride Level 105 mmol/L Carbon Dioxide Level 26 mmol/L Anion Gap 12 Blood Urea Nitrogen 23 mg/dL Creatinine 0.8 mg/dL Estimated GFR (Cockcroft-Gault) 74.5 BUN/Creatinine Ratio 29 Glucose Level 137 mg/dL Calcium Level 9.1 mg/dL Total Bilirubin 0.3 mg/dL Aspartate Amino Transf (AST/SGOT) 13 U/L Alanine Aminotransferase (ALT/SGPT) 25 U/L Alkaline Phosphatase 72 U/L Troponin I High Sensitivity 8 ng/L Total Protein 7.6 g/dL Albumin 3.9 g/dL Albumin/Globulin Ratio 1.1 Current Medications Medications (Trade) Dose Ordered Sig/Celina Route PRN Reason Start Time Stop Time Status Last Admin Dose Admin Aspirin (Aspirin Chewable) 324 mg 1X ONCE PO 07/24/21 16:00 07/24/21 16:01 DC EKG: EKG: EKG performed by ER staff at 1555 shows sinus rhythm without rate of 82, QTC of 426, no STEMI read by Dr. Mcdonald at 1558 [] Radiology/Procedures: Radiology/Procedures: []PROCEDURE: PORTABLE CHEST 1V EXAM: Chest, single view. HISTORY: Chest pain. COMPARISON: 10/31/2018 FINDINGS: A frontal view of the chest is obtained. There is no infiltrate, pleural effusion or pneumothorax. There is a prominent cardiac silhouette. IMPRESSION: No acute pulmonary finding. Electronically signed by: Ashley Chaudhry MD (07/24/2021 4:07 PM) [id number] DICTATED and SIGNED BY: ASHLEY CHAUDHRY MD DATE: 07/24/21 [id number] 0 Course & Med Decision Making: Course & Med Decision Making Pertinent Labs and Imaging studies reviewed. (See chart for details) [] Patient presents to the emergency department for midsternal chest pain that started yesterday. Work-up in the ER consisted of blood work, EKG and chest x- ray. Patient treated with aspirin. Patient was offered nitroglycerin but refused stating that she does not have any pain anymore.. Chest x-ray showed no acute findings. Blood work was unremarkable, no elevated troponin. 3 hour troponin ordered and it was []. As patient's chest pain started yesterday there is no need for delta troponins. I went in to discuss patient's findings with her and her son and her son asked if there is a possibility that stress and anxiety could be causing her chest pain because she has had a lot of family issues going on recently and the last time that she was seen in the emergency department for her chest pain she had a lot of stress and anxiety going on about her work. I told patient son that it is possible that stress and anxiety can cause chest pain. I gave them a referral for nuclear powerplant mechanic to follow-up with outpatient and advised her to follow-up with her primary care provider. Patient's heart score is 3. Patient's vital signs are stable and she is in no acute distress and is pain-free. Discussed findings with supervising physician. I discussed with patient all findings and diagnostic testing as well as the need to follow-up with PCP for further evaluation and treatment or return to the ER if any new or worsening symptoms. Strict return precautions were also dis cussed at length. Patient voiced understanding and agreement with the plan. Patient is hemodynamically stable at the time of disposition. Dragon Disclaimer: Dragon Disclaimer: This electronic medical record was generated, in whole or in part, using a voice recognition dictation system. Departure Departure Impression: Primary Impression: Chest pain Qualified Codes: R07.9 - Chest pain, unspecified Disposition: HOME / SELF CARE / HOMELESS Condition: GOOD Referrals: UNKNOWN PCP NAME (PCP) RENUKA SHAFER MD, PRASHANTH S MD Patient Instructions: Chest Pain (Nonspecific) Additional Instructions: You were seen in the emergency department today for chest pain. Your blood work, EKG and chest x-ray were unremarkable at this time. At this time, does not appear that you are experiencing acute coronary syndrome. However, if you go home and your pain returns or you develop shortness of breath, nausea, vomiting, dizziness you need to return to the emergency department for reevaluation. It is possible that your chest pain may be caused by anxiety and stress. I would advise you to follow-up with your primary care provider tomorrow regarding your ER visit. You may need to see a nuclear powerplant mechanic for further evaluation and the name of a nuclear powerplant mechanic was attached onto this disc harge papers, please call them on Tuesday to set up a follow-up appointment. NIKOLAI MARTINI APRN Jul 24, 2021 16:04
[2021-07-24 16:08] LABS: BASO % 1 % (0-3); EOS # 0.1 x10^3/uL (0.0-0.7); EOS % 1 % (0-3); HEMATOCRIT 35.8 % (36.0-47.0); LYMPH # 1.8 x10^3/uL (1.0-4.8); LYMPH % 30 % (24-48); MEAN CORPUSCULAR HEMOGLOBIN 29 pg (25-35); MEAN CORPUSCULAR HGB CONC 34 g/dL (31-37); MEAN CORPUSCULAR VOLUME 87 fL (79-100); MONO # 0.5 x10^3/uL (0.0-1.1); MONO % 8 % (0-9); NEUT # 3.7 x10^3/uL (1.8-7.7); NEUT % 61 % (31-73); PLATELET COUNT 291 x10^3/uL (140-400); RED BLOOD COUNT 4.13 x10^6/uL (3.50-5.40); RED CELL DISTRIBUTION WIDTH 14.9 % (11.5-14.5)
--- NOTE | 2021-07-24 16:09 | RAD ---
EXAM: Chest, single view. HISTORY: Chest pain. COMPARISON: 10/31/2018 FINDINGS: A frontal view of the chest is obtained. There is no infiltrate, pleural effusion or pneumo thorax. There is a prominent cardiac silhouette. IMPRESSION: No acute pulmonary finding. Electronically signed by: Ashley Khoury MD (07/24/2021 4:07 PM) [id number]
[2021-07-24 16:18] LABS: CALCIUM 9.1 mg/dL (8.5-10.1); CREATININE 0.8 mg/dL (0.6-1.0); GFR 74.5; POTASSIUM 4.2 mmol/L (3.5-5.1)
[2021-07-24 16:24] LABS: ALBUMIN 3.9 g/dL (3.4-5.0); ALBUMIN/GLOBULIN RATIO 1.1 (1.0-1.7); TOTAL BILIRUBIN 0.3 mg/dL (0.2-1.0); TOTAL PROTEIN 7.6 g/dL (6.4-8.2)
[2021-07-24] MEDS ORDERED: NITROGLYCERIN SUBLINGUAL 0.4 MG BOTTLE OF 25. SL PRN (17:00)
[2021-07-24 18:47] VITALS: BP 121/55
--- NOTE | 2021-07-25 02:30 | EKG ---
[facility] [address] [place] [address] Test Date: 2021-07-24 Test Time: 15:55:56 Pat Name: ARABELLA DE LÓEN Department: Room: Gender: F Cookie Padder: : 1965 Requested By: NIKOLAI MARTINI Order Number: [id number] Reading MD: Gianfranco Morillo MD Measurements Intervals [place] Rate: 82 P: 42 PA: 134 QRS: 44 QRSD: 80 T: 38 QT: 362 QTc: 426 Interpretive Statements SINUS RHYTHM Electronically Signed On 07-27-2021 8:27:29 MARKETING PROGRAMS MANAGER by Gianfranco Morillo MD
== END 2021-07-24 20:13 | disposition home or self-care (01) ==
LOC: ER 15:49
DX: R07.2 Precordial pain (principal); M25.511 Pain in right shoulder; M25.512 Pain in left shoulder; E11.9 Type 2 diabetes mellitus without complications
CPT/HCPCS: 36415; 71045; 80053; 84484; 85025; 93005; 99285-25